=== PATIENT | female | born 2000 | race Hispanic/Latino ===

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

== ENCOUNTER 2022-04-01 20:31 | Emergency (ER) | payer OTHER ==
[~2022-04-01] VITALS: Ht 162.6 cm; Wt 61.2 kg
[~2022-04-01 20:31] MED LIST: ADVAIR 250-501 EACH IH; IBUPROFEN400 MG PO; PROAIR HFA INH8.5 GM INH
[2022-04-01] MEDS ORDERED: KETOROLAC TROMETHAMINE 60 MG/2 ML VIAL IM ONE (22:45)
[2022-04-01] MEDS ORDERED: KETOROLAC TROMETHAMINE 30 MG/ML VIAL ONE (23:01)
[2022-04-01] MEDS ORDERED: NAPROSYN500 MG PO (23:33)
[2022-04-01 23:45] VITALS: BP 108/62
== END 2022-04-01 23:45 | disposition home or self-care (01) ==
LOC: FSED 21:02
DX: R50.9 Fever, unspecified (principal); M94.0 Chondrocostal junction syndrome [Tietze]; R07.89 Other chest pain; J45.909 Unspecified asthma, uncomplicated
CPT/HCPCS: 81025; 87400; 96372; 99282; J1885